=== PATIENT | female | born 1970 | race African-American/Black ===

== ENCOUNTER 2017-08-08 03:25 | Emergency (ER) | payer MEDICAID ==
[~2017-08-08] VITALS: Ht 175.3 cm; Wt 97.5 kg
[2017-08-08 03:25] VITALS: BP 148/91
[2017-08-08 03:45] LABS: BILIRUBIN,URINE NEGATIVE (NEG); GLUCOSE,URINE NEGATIVE (NEG); NITRITE,URINE NEGATIVE (NEG); PROTEIN,URINE NEGATIVE (NEG-TRACE)
[2017-08-08 03:53] LABS: BACTERIA,URINE FEW /HPF (0-FEW); SQUAMOUS EPITHELIAL CELL,UR MOD /LPF; TRICHOMONAS,URINE PRESENT; WBC,URINE TNTC /HPF (0-4)
[2017-08-08] MEDS ORDERED: cefTRIAXone IM 250 MG VIAL IM ONE (04:15)
[2017-08-08] MEDS ORDERED: metroNIDAZOLE 500 MG TABLET PO ONE (04:15)
[2017-08-08] MEDS ORDERED: FLUC150T PO (04:20)
[2017-08-08] MEDS ORDERED: DOXY100C2 PO (04:20)
--- NOTE | 2017-08-08 04:20 | PHYS DOC ---
Past Medical History Past Medical History: Asthma, Hypertension, Other Additional Past Medical Histor: sickle cell trait Past Surgical History: No Surgical History Smoking: Cigarettes Alcohol Use: None Drug Use: None Adult General Chief Complaint Chief Complaint: VAGINAL PROBLEM HPI HPI Patient is a 46 year old female who presents with vaginal burning, discharge and missed menses. She states her LMP approx 2 mos ago. She has had some spotting now. No fever. No abdominal pain. Review of Systems Review of Systems Constitutional: Denies fever or chills Respiratory: Denies cough or shortness of breath Cardiovascular: No additional information not addressed in HPI GI: Denies abdominal pain, nausea, vomiting, bloody stools or diarrhea : Denies dysuria or hematuria; POS vaginal discharge and vaginal spotting Musculoskeletal: Denies back pain or joint pain Integument: Denies rash or skin lesions Allergies Allergies Allergies Coded Allergies Type Severity Reaction Last Updated Verified Sulfa (Sulfonamide Antibiotics) Allergy Unknown 08/08/17 Yes naproxen Allergy Unknown 08/08/17 Yes Physical Exam Physical Exam Constitutional: Well developed, well nourished, no acute distress, non-toxic appearance. Cardiovascular:Heart rate regular rhythm, no murmur Lungs & Thorax: Bilateral breath sounds clear to auscultation Abdomen: Bowel sounds normal, soft, no tenderness, no masses, no pulsatile masses. : Oxygraph Operator present. External genitalia was normal without lesions or rashes. She has a thick green vaginal discharge noted on exam. Cultures were taken. No cervical motion tenderness. Skin: Warm, dry, no erythema, no rash. Neurologic: Alert and oriented X 3, normal motor function, normal sensory function, no focal deficits noted. Current Patient Data Vital Signs Vital Signs Date Time Temp Pulse Resp B/P (MAP) Pulse Ox O2 Delivery O2 Flow Rate FiO2 08/08/17 03:25 98.1 82 18 148/91 (110) 96 Room Air 98.1 Lab Values Laboratory Tests Test 08/08/17 03:30 08/08/17 03:37 Urine Collection Type Unknown Urine Color Yellow Urine Clarity Cloudy Urine pH 6.0 Urine Specific [place] 1.015 Urine Protein Negative mg/dL (NEG-TRACE) Urine Glucose (UA) Negative mg/dL (NEG) Urine Ketones (Stick) Negative mg/dL (NEG) Urine Blood Moderate (NEG) Urine Nitrite Negative (NEG) Urine Bilirubin Negative (NEG) Urine Urobilinogen Dipstick 1.0 mg/dL (0.2 mg/dL) Urine Leukocyte Esterase Large (NEG) Urine RBC 11-20 /HPF (0-2) Urine WBC Tntc /HPF (0-4) Urine Squamous Epithelial Cells Mod /LPF Urine Amorphous Sediment Present /HPF Urine Bacteria Few /HPF (0-FEW) Urine Mucus Mod /LPF Urine Trichomonas Present POC Urine HCG, Qualitative Hcg negative (Negative) Microbiology 08/08/17 Wet Prep - Final, Complete Course & Med Decision Making Course & Med Decision Making Evaluated patient. UCG NEGATIVE; Thick green discharge with POS trichomonas on wet prep. GC/Chlamydia pending, Treated with Flagyl 2 gm po; Rocephin 250 IM and rx: doxycycline and diflucan. I have spoken with the patient and/or caregivers. I have explained the patient' s condition, diagnosis and treatment plan based on the information available to me at this time. I have answered the patient's and/or caregiver's questions and addressed any concerns. The patient and/or caregivers have as good an understanding of the patient's diagnosis, condition and treatment plan as can be expected at this point. The patient's condition is stable and appropriate for discharge from the emergency department. The patient will pursue further outpatient evaluation with the primary care physician or other designated or consulting physician as outlined in the discharge instructions. The patient and/or caregivers are agreeable to this plan of care and follow-up instructions have been explained in detail. The patient and/or caregivers have received these instructions in written format and have expressed an understanding of the discharge instructions. The patient and/or caregivers are aware that any significant change in condition or worsening of symptoms should prompt an immediate return to this or the closest emergency department or a call to 911. Francesca Disclaimer Dragon Disclaimer This electronic medical record was generated, in whole or in part, using a voice recognition dictation system. Departure Departure Impression: Primary Impression: Vaginal discharge Additional Impression: Trichomonas vaginalis infection Disposition: 01 HOME, SELF-CARE Condition: STABLE Referrals: UNKNOWN PCP NAME (PCP) Patient Instructions: Cervicitis, Trichomonas, Test Scripts Fluconazole (DIFLUCAN) 150 Mg Tablet 1 TAB PO ONCE, #1 TAB Prov: ASHVIN JERONIMO MD 08/08/17 Doxycycline Hyclate (DOXYCYCLINE HYCLATE) 100 Mg Capsule 1 CAP PO BID, #14 CAP Prov: ASHVIN JERONIMO MD 08/08/17 Problem Qualifiers ASHVIN JERONIMO MD Aug 08, 2017 04:20
== END 2017-08-08 04:50 | disposition home or self-care (01) ==
LOC: ER 03:25
DX: A59.01 Trichomonal vulvovaginitis (principal); N89.8 Other specified noninflammatory disorders of vagina; I10 Essential (primary) hypertension; J45.909 Unspecified asthma, uncomplicated; F17.210 Nicotine dependence, cigarettes, uncomplicated; Z88.2 Allergy status to sulfonamides; Z88.6 Allergy status to analgesic agent
CPT/HCPCS: 81001; 81025; 87086; 87491; 87591; 96372; 99284; J0696; Q0111

== ENCOUNTER 2017-11-30 22:33 | Emergency (ER) | payer SELFPAY, MEDICAID ==
[~2017-11-30 22:33] MED LIST: FERRIC CARBOXYMALTOSE 750 MG/15 ML IV
[2017-11-30] MEDS: ACETAMINOPHEN 325 MG TABLET. PO ×2 (23:31)
== END 2017-11-30 23:29 | disposition home or self-care (01) ==
LOC: ER 23:29
DX: K08.89 Other specified disorders of teeth and supporting structures (principal); J45.909 Unspecified asthma, uncomplicated; I10 Essential (primary) hypertension; Z88.2 Allergy status to sulfonamides; Z88.6 Allergy status to analgesic agent
CPT/HCPCS: 99283; J1439

== ENCOUNTER 2019-04-30 08:11 | Emergency (ER) | payer MEDICAID ==
[~2019-04-30] VITALS: Ht 175.3 cm; Wt 124.7 kg
[~2019-04-30 08:11] MED LIST changes: +AMOX500C PO; +DOXY100C2 PO; -FERRIC CARBOXYMALTOSE 750 MG/15 ML IV; +FLUC150T PO
[2019-04-30 10:39] VITALS: BP 148/89
--- NOTE | 2019-04-30 10:48 | PHYS DOC ---
Past Medical History Past Medical History: Asthma, Hypertension, Other Additional Past Medical Histor: sickle cell trait Past Surgical History: No Surgical History Alcohol Use: None Drug Use: None Adult General Chief Complaint Chief Complaint: ABDOMINAL PAIN IN HPI HPI Patient is a 48 year old presents to the ED complaining of multiple complaints including possible , std exposure and lump to right breast. Patient s tates that she took a positive present test at home with a test from the grocery store. LMP was over 1 year ago. Patient is . Patient also states that she has vaginal discharge. Patient has concern for STD exposure. Reports new sexual partner. Patient requesting treatment for STDs. Lump to breast was noticed over the last two days. States it is not painful. No redness, warmth, or family hx of breast cancer. Denies vaginal bleeding, nipple discharge, hematuria, dysuria, abdominal pain, diarrhea, chest pain, shortness of breath, fever, headache, dizziness, weakness or nausea/vomiting. Review of Systems Review of Systems Constitutional: Denies fever or chills [] Eyes: Denies change in visual acuity, redness, or eye pain [] HENT: Denies nasal congestion or sore throat [] Respiratory: Denies cough or shortness of breath [] Cardiovascular: No additional information not addressed in HPI [] GI: Denies abdominal pain, nausea, vomiting, bloody stools or diarrhea [] : Complains of vaginal discharge and dysuria. Denies hematuria [] Musculoskeletal: Denies back pain or joint pain [] Integument: Denies rash or skin lesions [] Neurologic: Denies headache, focal weakness or sensory changes [] All other systems were reviewed and found to be within normal limits, except as documented in this note. Current Medications Current Medications Current Medications Medications (Trade) Dose Ordered Sig/Dunia Start Time Stop Time Status Last Admin Dose Admin Azithromycin (Zithromax) 1,000 mg 1X ONCE 04/30/19 11:00 04/30/19 11:01 DC 04/30/19 10:54 1,000 MG Ceftriaxone Sodium (Rocephin Im) 250 mg 1X ONCE 04/30/19 11:00 04/30/19 11:01 DC 04/30/19 10:55 250 MG Metronidazole (Flagyl) 2,000 mg 1X ONCE 04/30/19 11:00 04/30/19 11:01 DC 04/30/19 10:54 2,000 MG Allergies Allergies Allergies Coded Allergies Type Severity Reaction Last Updated Verified Sulfa (Sulfonamide Antibiotics) Allergy Unknown 08/08/17 Yes naproxen Allergy Unknown 08/08/17 Yes Physical Exam Physical Exam Constitutional: Well developed, well nourished, no acute distress, non-toxic appearance. [] HENT: Normocephalic, atraumatic Eyes: PERRLA, EOMI, conjunctiva normal, no discharge. [] Neck: Normal range of motion, no tenderness, supple, no stridor. [] Cardiovascular:Heart rate regular rhythm, no murmur [] Lungs & Thorax: Bilateral breath sounds clear to auscultation Breast exam: approx 2 cm palpable lump to right breast with no overlying skin changes or nipple discharge. Abdomen: Bowel sounds normal, soft, no tenderness, no masses, no pulsatile masses. [] : Refused pelvic exam. Will self swab. Skin: Warm, dry, no erythema, no rash. [] Back: No tenderness, no CVA tenderness. [] Extremities: No tenderness, no cyanosis, no clubbing, ROM intact, no edema. [] Neurologic: Alert and oriented X 3, normal motor function, normal sensory function, no focal deficits noted. [] Psychologic: Affect normal, judgement normal, mood normal. [] Current Patient Data Vital Signs Vital Signs Date Time Temp Pulse Resp B/P (MAP) Pulse Ox O2 Delivery O2 Flow Rate FiO2 04/30/19 10:39 148/89 (108) 04/30/19 09:58 76 18 97 Room Air 04/30/19 09:24 98.9 98.9 Lab Values Laboratory Tests Test 04/30/19 10:35 04/30/19 10:39 Urine Collection Type U cath Urine Color Yellow Urine Clarity Clear Urine pH 6.0 Urine Specific [place] 1.010 Urine Protein Negative mg/dL (NEG-TRACE) Urine Glucose (UA) Negative mg/dL (NEG) Urine Ketones (Stick) Negative mg/dL (NEG) Urine Blood Negative (NEG) Urine Nitrite Negative (NEG) Urine Bilirubin Negative (NEG) Urine Urobilinogen Dipstick 0.2 mg/dL (0.2 mg/dL) Urine Leukocyte Esterase Trace (NEG) Urine RBC 0 /HPF (0-2) Urine WBC 1-4 /HPF (0-4) Urine Transitional Epithelial Cells Few /LPF Urine Amorphous Sediment Present /HPF Urine Bacteria Few /HPF (0-FEW) POC Urine HCG, Qualitative Hcg negative (Negative) Microbiology 04/30/19 Wet Prep - Final, Complete EKG EKG [] Radiology/Procedures Radiology/Procedures [] Course & Med Decision Making Course & Med Decision Making Pertinent Labs and Imaging studies reviewed. (See chart for details) []Patient had a negative test in the ED. Patient refusing pelvic exam. Agreed to self swab. We'll treat with Rocephin, azithromycin and Flagyl in the ED. GC cultures pending. Patient has 2 similar breast mass in right breast. No overlying skin changes or nipple discharge. Patient given appropriate follow up outpatient for further examination of the breasts. Patient states she's been ago to the [facility] today. States she has an appointment. Discussed importance of follow-up and reasons to return to the ED. Patient understands and agrees with plan. Dragon Disclaimer Dragon Disclaimer This electronic medical record was generated, in whole or in part, using a voice recognition dictation system. Departure Departure Impression: Primary Impression: Possible exposure to STD Additional Impression: Breast mass Disposition: HOME, SELF-CARE Condition: STABLE Referrals: NO PCP (PCP) LESVIA DHILLON MD Patient Instructions: Breast Self-Awareness, Breast Self-Exam, [id number], Sexually Transmitted Disease Problem Qualifiers STEVE WALTON Apr 30, 2019 10:48
[2019-04-30 10:52] LABS: BILIRUBIN,URINE NEGATIVE (NEG); CLARITY,URINE CLEAR; COLOR,URINE YELLOW; NITRITE,URINE NEGATIVE (NEG); PROTEIN,URINE NEGATIVE (NEG-TRACE); UROBILINOGEN,URINE 0.2 mg/dL (0.2 mg/dL)
[2019-04-30 10:54] LABS: RBC,URINE 0 /HPF (0-2)
[2019-04-30] MEDS: AZITHROMYCIN 250 MG TABLET. PO ONE (10:54)
[2019-04-30] MEDS: metroNIDAZOLE 500 MG TABLET PO ONE (10:54)
[2019-04-30 10:55] LABS: AMORPHOUS SEDIMENT,UR PRESENT /HPF; BACTERIA,URINE FEW /HPF (0-FEW)
[2019-04-30] MEDS: cefTRIAXone IM 250 MG VIAL IM ONE (10:55)
[2019-05-01 17:09] LABS: GC PROBE Positive (Negative)
== END 2019-04-30 10:57 | disposition home or self-care (01) ==
LOC: ER 08:11
DX: N63.10 Unspecified lump in the right breast, unspecified quadrant (principal); Z20.2 Contact with and (suspected) exposure to infections with a predominantly sexual mode of transmission; I10 Essential (primary) hypertension; J45.909 Unspecified asthma, uncomplicated; D57.3 Sickle-cell trait; Z88.8 Allergy status to other drugs, medicaments and biological substances; Z88.2 Allergy status to sulfonamides
CPT/HCPCS: 81001; 81025; 87491; 87591; 96372; 99284; J0696; Q0111; Q0144

== ENCOUNTER 2020-08-07 23:51 | Emergency (ER) | payer MEDICAID ==
[~2020-08-07] VITALS: Ht 182.9 cm; Wt 104.6 kg
--- NOTE | 2020-08-08 00:20 | ED.ADGEN ---
Past Medical History Past Medical History: Asthma, Hypertension, Other Additional Past Medical Histor: sickle cell trait Past Surgical History: No Surgical History Smoking Status: Current Every Day Smoker Alcohol Use: None Drug Use: None General Adult EDM: Chief Complaint: OVERDOSE HPI: HPI: Patient is a 49 year old female brought in by EMS. History provided by EMS due to patient's altered mental status. States that she was out drinking with friends and smoked K2, and then passed out and her friend started CPR. She vomited during the CPR. On EMS arrival she was breathing on her own and had a pulse, no signs of cardiac or pulmonary arrest. Review of Systems: Review of Systems: Unable to assess due to patient's mental status Allergies: Allergies: Allergies Coded Allergies Type Severity Reaction Last Updated Verified Sulfa (Sulfonamide Antibiotics) Allergy Unknown 08/08/17 Yes naproxen Allergy Unknown 08/08/17 Yes Physical Exam: PE: Constitutional: Well developed, well nourished, lethargic, covered in emesis HENT: Normocephalic, atraumatic, bilateral external ears normal, oropharynx moist, nose normal. [] Eyes: PERRLA, EOMI, conjunctiva normal, no discharge. [] Neck: Normal range of motion, no tenderness, supple, no stridor. [] Cardiovascular:Heart rate regular rhythm, no murmur [] Lungs & Thorax: Bilateral breath sounds clear to auscultation [] Abdomen: Bowel sounds normal, soft, no tenderness, no masses, no pulsatile masses. [] Skin: Warm, dry, no erythema, no rash. [] Back: No tenderness, no CVA tenderness. [] Extremities: No tenderness, no cyanosis, no clubbing, ROM intact, no edema. [] Neurologic: Lethargic, opens eyes to voice, maintaining airway Psychologic: Affect normal, judgement normal, mood normal. [] Current Patient Data: Labs: Laboratory Tests Test 08/08/20 00:23 08/08/20 00:45 White Blood Count 9.0 x10^3/uL (4.0-11.0) Red Blood Count 5.28 x10^6/uL (3.50-5.40) Hemoglobin 13.9 g/dL (12.0-15.5) Hematocrit 42.4 % (36.0-47.0) Mean Corpuscular Volume 80 fL (79-100) Mean Corpuscular Hemoglobin 26 pg (25-35) Mean Corpuscular Hemoglobin Concent 33 g/dL (31-37) Red Cell Distribution Width 17.5 % (11.5-14.5) H Platelet Count 375 x10^3/uL (140-400) Neutrophils (%) (Auto) 65 % (31-73) Lymphocytes (%) (Auto) 26 % (24-48) Monocytes (%) (Auto) 8 % (0-9) Eosinophils (%) (Auto) 1 % (0-3) Basophils (%) (Auto) 2 % (0-3) Neutrophils # (Auto) 5.8 x10^3/uL (1.8-7.7) Lymphocytes # (Auto) 2.3 x10^3/uL (1.0-4.8) Monocytes # (Auto) 0.7 x10^3/uL (0.0-1.1) Eosinophils # (Auto) 0.0 x10^3/uL (0.0-0.7) Basophils # (Auto) 0.1 x10^3/uL (0.0-0.2) Sodium Level 141 mmol/L (136-145) Potassium Level 3.3 mmol/L (3.5-5.1) L Chloride Level 107 mmol/L (98-107) Carbon Dioxide Level 25 mmol/L (21-32) Anion Gap 9 (6-14) Blood Urea Nitrogen 7 mg/dL (7-20) Creatinine 1.0 mg/dL (0.6-1.0) Estimated GFR (Cockcroft-Gault) 71.6 BUN/Creatinine Ratio 7 (6-20) Glucose Level 118 mg/dL (70-99) H Lactic Acid Level 2.5 mmol/L (0.4-2.0) H Calcium Level 8.3 mg/dL (8.5-10.1) L Total Bilirubin 0.2 mg/dL (0.2-1.0) Aspartate Amino Transferase (AST) 14 U/L (15-37) L Alanine Aminotransferase (ALT) 17 U/L (14-59) Alkaline Phosphatase 54 U/L (46-116) Troponin I Quantitative < 0.017 ng/mL (0.000-0.055) Total Protein 6.7 g/dL (6.4-8.2) Albumin 3.3 g/dL (3.4-5.0) L Albumin/Globulin Ratio 1.0 (1.0-1.7) Ethyl Alcohol Level 57 mg/dL (0-10) H Urine Collection Type U cath Urine Color Yellow Urine Clarity Clear Urine pH 5.5 (<5.0-8.0) Urine Specific [place] 1.010 (1.000-1.030) Urine Protein Negative mg/dL (NEG-TRACE) Urine Glucose (UA) Negative mg/dL (NEG) Urine Ketones (Stick) Negative mg/dL (NEG) Urine Blood Trace (NEG) Urine Nitrite Negative (NEG) Urine Bilirubin Negative (NEG) Urine Urobilinogen Dipstick 0.2 mg/dL (0.2 mg/dL) Urine Leukocyte Esterase Negative (NEG) Urine RBC 1-2 /HPF (0-2) Urine WBC Rare /HPF (0-4) Urine Squamous Epithelial Cells Few /LPF Urine Amorphous Sediment Present /HPF Urine Bacteria 0 /HPF (0-FEW) Urine Hyaline Casts Few /HPF Urine Mucus Mod /LPF Urine Opiates Screen Neg (NEG) Urine Methadone Screen Neg (NEG) Urine Barbiturates Neg (NEG) Urine Phencyclidine Screen Pos (NEG) Urine Amphetamine/Methamphetamine Neg (NEG) Urine Benzodiazepines Screen Neg (NEG) Urine Cocaine Screen Neg (NEG) Urine Cannabinoids Screen Neg (NEG) Urine Ethyl Alcohol Pos (NEG) Laboratory Tests 08/08/20 00:23 Laboratory Tests 08/08/20 00:23 EKG: EKG: Normal sinus rhythm, heart rate 70 bpm no ectopy, normal axis [] Heart Score: Risk Factors: Risk Factors: DM, Current or recent (<one month) smoker, HTN, HLP, family history of CAD, obesity. Risk Scores: Score 0 - 3: 2.5% MACE over next 6 weeks - Discharge Home Score 4 - 6: 20.3% MACE over next 6 weeks - Admit for Clinical Observation Score 7 - 10: 72.7% MACE over next 6 weeks - Early Invasive Strategies Radiology/Procedures: Radiology/Procedures: PROCEDURE: CHEST AP ONLY AP chest. HISTORY: Aspiration AP view was taken of the chest. Heart is normal in size. There is no effusion. There are no confluent infiltrates. IMPRESSION: 1. No acute infiltrates. [] Course & Med Decision Making: Course & Med Decision Making Pertinent Labs and Imaging studies reviewed. (See chart for details) Patient more alert, mother at bedside would like to take her home. Patient able to ambulate with a steady gait. [] Dragon Disclaimer: Dragon Disclaimer: This electronic medical record was generated, in whole or in part, using a voice recognition dictation system. Departure Departure Impression: Primary Impression: Altered mental status associated with intoxication Disposition: 01 DC HOME SELF CARE/HOMELESS Condition: IMPROVED Referrals: NO PCP (PCP) Patient Instructions: Alcohol Intoxication AYLIN ALICEA MD Aug 08, 2020 00:20
--- NOTE | 2020-08-08 00:31 | RAD ---
AP chest. HISTORY: Aspiration AP view was taken of the chest. Heart is normal in size. There is no effusion. There are no confluent infiltrates. IMPRESSION: 1. No acute infiltrates. Electronically signed by: Jefe Iqbal MD (08/08/2020 12:28 AM) [id number]
[2020-08-08 00:35] LABS: BASO # 0.1 x10^3/uL (0.0-0.2); BASO % 2 % (0-3); EOS % 1 % (0-3); HEMATOCRIT 42.4 % (36.0-47.0); HEMOGLOBIN 13.9 g/dL (12.0-15.5); LYMPH # 2.3 x10^3/uL (1.0-4.8); LYMPH % 26 % (24-48); MEAN CORPUSCULAR HEMOGLOBIN 26 pg (25-35); MEAN CORPUSCULAR HGB CONC 33 g/dL (31-37); MEAN CORPUSCULAR VOLUME 80 fL (79-100); MONO # 0.7 x10^3/uL (0.0-1.1); MONO % 8 % (0-9); NEUT # 5.8 x10^3/uL (1.8-7.7); NEUT % 65 % (31-73); PLATELET COUNT 375 x10^3/uL (140-400); RED BLOOD COUNT 5.28 x10^6/uL (3.50-5.40); RED CELL DISTRIBUTION WIDTH 17.5 % (11.5-14.5)
[2020-08-08 00:43] LABS: CALCIUM 8.3 mg/dL (8.5-10.1); GFR 71.6; POTASSIUM 3.3 mmol/L (3.5-5.1)
[2020-08-08 00:49] LABS: ALBUMIN 3.3 g/dL (3.4-5.0); TOTAL BILIRUBIN 0.2 mg/dL (0.2-1.0); TOTAL PROTEIN 6.7 g/dL (6.4-8.2)
[2020-08-08 01:08] LABS: BILIRUBIN,URINE NEGATIVE (NEG); CLARITY,URINE CLEAR; COLOR,URINE YELLOW; NITRITE,URINE NEGATIVE (NEG); PH,URINE 5.5 (<5.0-8.0); PROTEIN,URINE NEGATIVE (NEG-TRACE); UROBILINOGEN,URINE 0.2 mg/dL (0.2 mg/dL)
[2020-08-08 01:15] LABS: AMORPHOUS SEDIMENT,UR PRESENT /HPF; BACTERIA,URINE 0 /HPF (0-FEW); BARBITURATES NEG (NEG); BENZODIAZEPINES NEG (NEG); CANNABINOIDS NEG (NEG); COCAINE NEG (NEG); HYALINE CASTS, URINE FEW /HPF; METHADONE NEG (NEG); OPIATES NEG (NEG); PHENCYCLIDINE POS (NEG); WBC,URINE RARE /HPF (0-4)
[2020-08-08 01:19] LABS: AMPHETAMINE/METHAMPHETAMINE NEG (NEG)
[2020-08-08 02:23] VITALS: BP 145/94
== END 2020-08-08 02:30 | disposition home or self-care (01) ==
LOC: ER 23:51
DX: F10.229 Alcohol dependence with intoxication, unspecified (principal); R41.82 Altered mental status, unspecified; R11.10 Vomiting, unspecified; J45.909 Unspecified asthma, uncomplicated; I10 Essential (primary) hypertension; F17.200 Nicotine dependence, unspecified, uncomplicated; Z88.2 Allergy status to sulfonamides; Z88.8 Allergy status to other drugs, medicaments and biological substances
CPT/HCPCS: 36415; 71045; 80053; 80307; 81001; 83605; 84484; 85025; 92950; 99285; G0480